=== PATIENT | male | born 1965 | race African-American/Black ===

== ENCOUNTER 2017-10-22 21:28 | Emergency (ER) | payer OTHER ==
[~2017-10-22] VITALS: Ht 172.7 cm; Wt 82.2 kg
[~2017-10-22 21:28] MED LIST: INDOCIN25 MG PO; NAPROXEN500 MG PO; NORCO 7.5/321 TABLET PO
[2017-10-22 21:47] LABS: MCH 26.8 PG (29.0-34.0); MCHC 32.2 G/DL (30.0-36.0); MCV 83.2 FL (86-99); MEAN PLAT.VOLUME 10.7 uM^3 (9.0-12.4); PLATELET COUNT 213 K/uL (156-360); RBC DIS.WIDTH-CV 13.3 % (11.8-14.6); RBC DIS.WIDTH-SD 40.5 % (39-53); RED BLOOD COUNT 4.93 M/uL (4.00-5.50); WHITE BLOOD COUNT 7.3 K/uL (4.1-10.2)
[2017-10-22 21:53] LABS: ADD MIUA? NO; BILIRUBIN NEGATIVE; BLOOD NEGATIVE; COLOR YELLOW ((YELLOW)); GLUCOSE (STRIP) NEGATIVE; KETONES 5; LEUKOCYTES NEGATIVE; NITRITE NEGATIVE; PROTEIN (STRIP) NEGATIVE; SPECIFIC GRAVITY 1.025 (1.000-1.030); UCUL ADDED? NO; UROBILINOGEN 0.2 MG/DL (0.2-1.0)
[2017-10-22 21:58] LABS: CHLORIDE 104 mEq/L (99-109); POTASSIUM 3.7 mEq/L (3.7-5.4); SODIUM 136 mEq/L (136-147)
[2017-10-22 22:00] LABS: GLUCOSE 120 mg/dL (70-99)
[2017-10-22 22:01] LABS: ANION GAP 9 MEQ/L (2-14)
[2017-10-22 22:02] LABS: TOTAL BILIRUBIN 0.4 mg/dL (0.0-1.0)
[2017-10-22 22:03] LABS: ALKALINE PHOSPHATASE 62 IU/L (3-129)
[2017-10-22 22:04] LABS: GFR ESTIMATE (CALCULATED) > 59 mL/min/
[2017-10-22 22:05] LABS: UREA NITROGEN (BUN) 10 mg/dL (9-23)
[2017-10-22 22:07] LABS: LIPASE 24 U/L (1.0-51.0)
[2017-10-22] MEDS ORDERED: BENTYL20 MG PO (23:37)
[2017-10-22 23:47] VITALS: BP 121/83
== END 2017-10-22 23:48 | disposition home or self-care (01) ==
LOC: RME 21:28 → EME 21:28 → RME 23:48
DX: K52.9 Noninfective gastroenteritis and colitis, unspecified (principal); R10.84 Generalized abdominal pain; K42.9 Umbilical hernia without obstruction or gangrene; N20.0 Calculus of kidney; K92.1 Melena
CPT/HCPCS: 74177; 80053; 81003; 83690; 85027; 99281; 99284; J1885

== ENCOUNTER 2017-11-09 17:49 | Emergency (ER) | payer OTHER ==
[~2017-11-09] VITALS: Ht 172.7 cm; Wt 80.6 kg
[~2017-11-09 17:49] MED LIST changes: +BENTYL20 MG PO
[2017-11-09 19:25] VITALS: BP 140/98
[2017-11-09 20:24] LABS: C DIFF TOXIN NEGATIVE (NEGATIVE)
[2017-11-09 20:26] LABS: PROBE CHECK PASS; SPECIMEN PROCESSING CONTROL PASS
== END 2017-11-09 19:26 | disposition home or self-care (01) ==
LOC: EME 17:49
PROVIDERS: Physician Assistant
DX: R19.7 Diarrhea, unspecified (principal); Z88.6 Allergy status to analgesic agent
CPT/HCPCS: 80053; 85025; 87045; 87046; 87493; 87506; 99281; 99283

== ENCOUNTER 2018-06-02 21:50 | Emergency (ER) | payer OTHER ==
[~2018-06-02] VITALS: Ht 167.6 cm; Wt 95.1 kg
[2018-06-02 22:48] LABS: HEMATOCRIT 42.3 % (38.0-50.0); HEMOGLOBIN 13.7 G/DL (12.5-16.6); MCH 26.7 PG (29.0-34.0); MCHC 32.4 G/DL (30.0-36.0); MCV 82.5 FL (86-99); PLATELET COUNT 231 K/uL (156-360); RBC DIS.WIDTH-CV 13.2 % (11.8-14.6); RBC DIS.WIDTH-SD 39.7 % (39-53); RED BLOOD COUNT 5.13 M/uL (4.00-5.50); WHITE BLOOD COUNT 8.2 K/uL (4.1-10.2)
[2018-06-02 22:56] LABS: CHLORIDE 100 mEq/L (99-109)
[2018-06-02 22:57] LABS: POTASSIUM 3.7 mEq/L (3.7-5.4); SODIUM 134 mEq/L (136-147)
[2018-06-02 22:58] LABS: GLUCOSE 139 mg/dL (70-99)
[2018-06-02 23:02] LABS: CREATININE 1.3 mg/dL (0.6-1.3); GFR ESTIMATE (CALCULATED) > 59 mL/min/ (58.99-99999)
[2018-06-02 23:03] LABS: UREA NITROGEN (BUN) 13 mg/dL (9-23)
[2018-06-03 00:16] LABS: CREATINE KINASE 268 IU/L (1-294)
[2018-06-03 00:18] LABS: TROP-I INTERPRETATION NEGATIVE; TROPONIN-I < 0.01 ng/mL (0.0-0.30)
[2018-06-03] MEDS ORDERED: MECLIZINE HCL25 MG PO (01:09)
[2018-06-03 01:57] VITALS: BP 111/78
== END 2018-06-03 01:58 | disposition home or self-care (01) ==
LOC: EME 21:50
DX: E86.1 Hypovolemia (principal); H81.10 Benign paroxysmal vertigo, unspecified ear
CPT/HCPCS: 70450; 80048; 82550; 84484; 85027; 93005; 99281; 99284